=== PATIENT | male | born 1985 | race Caucasian/White ===

== ENCOUNTER 2017-05-02 11:17 | Emergency (ER) | payer OTHER ==
[~2017-05-02] VITALS: Ht 172.7 cm; Wt 75.0 kg
[2017-05-02] MEDS ORDERED: LIDOCAINE HCL 1% 10 ML VIAL INJ ONE (12:15)
[2017-05-02] MEDS ORDERED: LIDOCAINE HCL/PF 1% 5 ML VIAL ONE (12:22)
[2017-05-02] MEDS ORDERED: LIDOCAINE HCL/PF 1% 5 ML VIAL INJ ONE (12:30)
[2017-05-02 12:55] VITALS: BP 142/92
== END 2017-05-02 13:02 | disposition home or self-care (01) ==
LOC: EMS 11:19
DX: K08.89 Other specified disorders of teeth and supporting structures (principal); I10 Essential (primary) hypertension
CPT/HCPCS: 64400; 99284; J3490